=== PATIENT | male | born 1950 | race Caucasian/White ===

== ENCOUNTER 2019-04-19 08:55 | Day surgery (SDC) | payer MEDICARE, OTHER ==
[2019-04-15 09:09] LABS: HEMATOCRIT 38.8 % (42.0-54.0); HEMOGLOBIN 13.3 g/dL (13.5-17.5); MCH 32.8 pg (26.0-34.0); MCHC 34.3 g/dL (31.0-37.0); MCV 95.6 fL (80.0-100.0); MEAN PLATELET VOLUME 10.2 fL (7.4-10.4); RBC 4.06 10x6/uL (4.20-6.10); RDW 13.3 % (11.5-14.5); WBC 6.1 10x3/uL (4.8-10.8)
[~2019-04-19] VITALS: Ht 167.6 cm; Wt 85.3 kg
[~2019-04-19 08:55] MED LIST: CLARITIN 10 MG10 MG PO; FLOMAX0.4 MG PO; LIPITOR10 MG PO; LISINOPRIL10 MG PO; OMEPRAZOLE20 M1 PO
[2019-04-19 09:18] VITALS: BP 141/79; Ht 167.6 cm; Wt 85.3 kg
--- NOTE | 2019-04-19 13:44 | OP ---
PATIENT NAME: GRANT OVALLE MEDICAL RECORD: [id number] :48 LOCATION:[facility] ADMISSION DATE: SURGEON: ANNE BECKER MD DATE OF OPERATION: 04/19/2019 SURGEON: Anne Becker MD ANESTHESIA: General anesthesia by Tae Garcia. DIAGNOSIS: Obstructive benign prostatic hyperplasia with a PSA of 1.14. QUYEN shows a 40 gram prostate. IPSS is 7. Quality of life score is 3, on Flomax. PROCEDURE: UroLift times 4 in box configuration around bladder neck. FINDINGS: No urethral strictures, bladder neck obstruction. Trabeculated bladder without any bladder tumors. Single ureteral orifices bilaterally. ESTIMATED BLOOD LOSS: None. CLINICAL HISTORY: This is a 68-year-old male, who has obstructive BPH symptoms as well as microscopic hematuria. He has nocturia times 1. He has been on Flomax. He wishes to be off the Flomax due to its side effects. He is not allergic to any medications. He was given Ancef installation drafter to the OR. DESCRIPTION OF PROCEDURE: The patient was initially given IV sedation; however, when we placed his legs into the stirrups for a lithotomy position we realized that he had quite significant restless leg syndrome. He was then given an LMA and general anesthetic. This stabilized the legs. He was prepped and draped. The UroLift scope was introduced. No urethral strictures were seen. The main site of obstruction with the bladder neck. Four units were placed about 1.5 cm distal to the bladder neck. The first 2 were placed, one on each side at the anterolateral sulcus. The latter 2 were placed at the mid urethral level in an anterior and posterior direction at 1.5 cm distal to the bladder neck. All 4 units opened up the bladder neck widely. The bladder was left partly filled with irrigation fluid for a voiding trial. I will see the patient in followup in 1 months' time. TRANSINT:[id number] Voice Confirmation ID: [id number] DOCUMENT ID: [id number] ANNE BECKER MD at 1344 CC: [id number] DICTATION DATE: 04/19/19 1234 MONUMENT CARVER: 04/19/19 [id number] [place] [address]
--- NOTE | 2019-04-19 14:59 | NUR ---
1415 IV REMOVED AND INSTRUCTIONS GIVEN.
== END 2019-04-19 14:45 | disposition home or self-care (01) ==
LOC: D.OPS 08:55 → D.PAN 11:35 → D.OPS 11:45 → D.PAN 11:50 → D.OPS 12:15
PROVIDERS: Anesthesiology; ATTEND Urology
DX: N40.1 Benign prostatic hyperplasia with lower urinary tract symptoms (principal); N13.8 Other obstructive and reflux uropathy

== ENCOUNTER → 2019-04-26 12:32 | Outpatient (CLI) | payer MEDICARE, OTHER ==
[2019-04-19 09:18] VITALS: BMI 30.4
== END | disposition home or self-care (01) ==
LOC: D.LABREF 12:32
PROVIDERS: ATTEND Urology
DX: R31.9 Hematuria, unspecified (principal)

== ENCOUNTER → 2020-03-19 07:58 | Outpatient (CLI) | payer MEDICARE, OTHER ==
[2019-04-19 09:18] VITALS: BMI 30.4
== END | disposition home or self-care (01) ==
LOC: D.HCCARDIO 07:58
PROVIDERS: ATTEND Internal Medicine Cardiovascular Disease
DX: Z01.818 Encounter for other preprocedural examination (principal)

== ENCOUNTER 2020-04-02 11:16 | Day surgery (SDC) | payer MEDICARE, OTHER ==
[~2020-04-02] VITALS: Ht 167.6 cm; Wt 80.0 kg
--- NOTE | ~2020-04-02 | HEMODYNAMI ---
PATIENT:GRANT OVALLE MEDICAL RECORD: [id number] : 48 LOCATION:D.CAT ADMISSION DATE: 04/02/20 Generatedon:04/02/202014:21 Patient name: GRANT OVALLE Patient #: [id number] SSN: [id number] : 1950 Date of study: 04/02/2020 Page: Of Hemodynamic Procedure Report Patient Data Patient Demographics Procedure consent was obtained First Name: GRANT Gender: Male Last Name: YAMILE : 1950 [facility] Initial: ESTHER Age: 69 year(s) Patient #: [id number] Race: SSN: [id number] Additional ID: [id number] Contact details Address: [address] [place] [address] [facility] State: [place] City: [place] Zip code: [address] Past Medical History Allergies Allergen Reaction Date Comments Reported Other allergy 04/02/2020 NKA Admission Admission Data Admission Date: 04/02/2020 Admission Time: 11:16 Arrival Date: 04/02/2020 Arrival Time: 0:00 Admit Source: Other Insurance Payor: Medicare [facility] #: [id number] Height (in.): 66 BSA: 1.9 (m2) Height (cm.): 167.64 BMI: 28.73 (kg/m2) Weight (lbs.): 178 Weight (kg.): 80.74 Lab Results Lab Result Date: 04/02/2020 Lab Result Time: 0:00 Biochemistry Name Units Result Min Max BUN mg/dl 18 --(---*)-- 7 18 Creatinine mg/dl 1.2 --(---*)-- 0.6 1.3 Procedure Procedure Types Cath Procedure Diagnostic Procedure [facility] w/Coronaries FFR/IVUS FFR Initial Sedation Charges Moderate Sedation up to 45 minutes PCI Procedure Coronary Stent Coronary Stent Initial Hemochron ACT Test Procedure Description Procedure Date Procedure Date: 04/02/2020 Procedure Start Time: 13:34 Procedure End Time: 14:16 Procedure Staff Name Function J Luis Edwards MD Performing Physician Shannan Palomares RT Monitor Nora Metcalf RN Nurse Devorah Victor RT Scrub Danny Carrasco RN Nurse Procedure Data Cath Procedure Fluoroscopy Diagnostic fluoroscopy Total fluoroscopy Time: 8.1 time: 8.1 min min Diagnostic fluoroscopy Total fluoroscopy dose: dose: 1305 mGy 1305 mGy Contrast Material Contrast Material Type Amount (ml) Isovue 300 113 Entry Location Entry Primary Successful Side Size Upsize Upsize Entry Closure [place] ccessful Closure Location (Fr) 1 (Fr) 2 (Fr) Remarks Device Remarks Radial Right 6 Fr Mechanical artery Short Compression Estimated blood loss: 10 ml Diagnostic catheters Device Type Used For End Catheter Placement DIAGNOSTIC Harmans 110cm 5 Procedure Fr catheter ([id number]) Procedure Complications No complications Procedure Medications Medication Administration Route Dosage Oxygen etCO2 Nasal cannula 2 l/min Heparin Flush Bag added to field 2 bags (1000units/500ml NS) 0.9% NaCl I.V. 100 ml/hr Lidocaine 2% added to field 20 Fentanyl I.V. 50 mcg Versed I.V. 1 mg Fentanyl I.V. 50 mcg Versed I.V. 1 mg Radial Cocktail added to field 1 syringe (Verapamil 2mg/Nitro 400mcg/Heparin 1500units) Radial Cocktail I.A. 1 syringe (Verapamil 2mg/Nitro 400mcg/Heparin 1500units) Heparin Bolus I.V. 8000 units Nitroglycerin IC/IA I.C. 100 mcg Plavix P.O. 600 mg Hemodynamics Rest BSA: 1.9 (m2) O2 Consumption: Estimated: 221.92 (ml/min) O2 Consumption indexed: Estimated:116.8 (ml/min/m) Heart Rate: 73 (bpm) Pressure Samples Time Site Value (mmHg) Purpose Heart Use Rate(bpm) 13:37 LV 87/7,9 Snapshot 83 13:38 LV 130/1,11 Snapshot 84 13:39 AO 97/65(78) Pullback 85 Gradients Valve Time Site Site 2 Mean SEP/DFP Peak To Heart Use 1 (mmHg) (sec/min) Peak Rate (mmHg) (bpm) Aortic 13:39 LV AO 83 45 85 97/65(78) Calculations Valve P-P Mean Valve Index Valve Source Name Gradient Area Flow (cm2) Aortic 83 83 Snapshots Pre Cath Intra NCS Post Cath Vital Signs Time Heart Resp SPO2 etCO2 NIBP Rhythm Pain Sedation Rate (ipm) (%) (mmHg) (mmHg) Status Level (bpm) 13:01:57 70 17 29.9 123/81(97) NSR 0 (11) 10(A) , No pain 13:05:48 70 17 98 31.4 115/72(87) NSR 0 (11) 10(A) , No pain 13:10:11 72 16 99 29.9 128/65(93) NSR 0 (11) 10(A) , No pain 13:14:00 65 17 33.7 122/74(89) NSR 0 (11) 10(A) , No pain 13:17:52 66 17 99 32.9 123/69(89) NSR 0 (11) 10(A) , No pain 13:21:43 68 17 100 30.7 124/71(94) NSR 0 (11) 10(A) , No pain 13:25:32 68 16 33.7 116/74(89) NSR 0 (11) 10(A) , No pain 13:29:24 69 16 30.7 114/71(90) NSR 0 (11) 10(A) , No pain 13:33:36 67 10 0.7 125/75(95) NSR 0 (11) 9(A) , No pain 13:37:25 83 14 93 18.7 113/71(96) NSR 0 (11) 9(A) , No pain 13:41:49 78 7 95 4.4 113/60(93) NSR 0 (11) 9(A) , No pain 13:45:43 72 8 96 8.2 93/58(79) NSR 0 (11) 9(A) , No pain 13:50:11 65 9 96 15.7 119/48(74) NSR 0 (11) 9(A) , No pain 13:54:05 69 10 97 37.4 93/60(72) NSR 0 (11) 9(A) , No pain 13:58:00 73 11 97 36.7 94/53(64) NSR 0 (11) 9(A) , No pain 14:01:58 67 10 97 32.2 97/51(77) NSR 0 (11) 9(A) , No pain 14:05:49 67 10 98 38.1 100/58(82) NSR 0 (11) 9(A) , No pain 14:09:47 68 11 98 38.1 106/51(75) NSR 0 (11) 9(A) , No pain 14:13:38 65 11 98 37.4 105/61(81) NSR 0 (11) 10(A) , No pain Medications Time Medication Route Dose Verified Delivered Reason Not es Effectiveness by by 13:30:57 Oxygen etCO2 2 l/min J Luis Danny Per physician Nasal Jerry Carrasco RN cannula 13:31:21 Heparin Flush added 2 bags J Luis Danny used for Bag to Jerry Carrasco RN procedure (1000units/500ml field NS) 13:31:31 0.9% NaCl I.V. 100 J Luis Danny Per physician ml/hr Jerry Carrasco RN 13:31:39 Lidocaine 2% added 20ml J Luis Danny for local to vial Jerry Carrasco RN anesthetic field 13:31:48 Fentanyl I.V. 50 mcg J Luis Danny for sedation Jerry Carrasco RN 13:31:55 Versed I.V. 1 mg J Luis Danny for sedation Jerry Carrasco RN 13:34:38 Fentanyl I.V. 50 mcg J Luis Adnny for sedation Jerry Carrasco RN 13:34:41 Versed I.V. 1 mg J Luis Danny for sedation Jerry Carrasco RN 13:34:56 Radial Cocktail added 1 J Luis Danny used for (Verapamil to syringe Jerry Carrasco evaluation manager 2mg/Nitro field 400mcg/Heparin 1500units) 13:37:58 Radial Cocktail I.A. 1 J Luis J Luis for (Verapamil syringe Jerry Edwards MD vasodilation 2mg/Nitro 400mcg/Heparin 1500units) 13:56:44 Heparin Bolus I.V. 8000 Nora Nora for cristal ified w units Tea Metcalf, anticoagulation elisha,rn RN RN 13:57:24 Nitroglycerin I.C. 100 mcg Nora J Luis for IC/IA Jerry Metcalf MD vasodilation RN 14:11:45 Plavix P.O. 600 mg Nora Nora for Tea Metcalf, antiplatelet RN RN therapy Procedure Log Time Note 12:18: Informed consent obtained and on chart 12:21:48 Procedure Status Elective Heart Cath (OP). 12:21:50 Time tracking: Regular hours (M-F 7:00 - 5:00) 12:23:15 Arrival Date: 04/02/2020 12:00:00 AM 12:23:25 Patient Height : 66 inches 12:23:31 Patient Weight : 178 lbs 12:25:38 Stress Test: yes; abnormal INFERIOR 12:36:30 Devorah Victor RT(R) (CV) sent for patient. Start room use. 12:36:42 Plan of Care:Hemodynamics will remain stable., Cardiac rhythm will remain stable., Comfort level will be maintained., Respiratory function will remain adequate., Patient/ family verbilizes understanding of procedure., Procedure tolerated without complication., Recovers from procedure without complications.. 12:49:06 Patient received from Pre/Post Procedure Room to CCL 2 Alert and oriented. Tansferred to table in Supine position. 12:49:31 Warm blankets applied, and jones hugger turned on for patient comfort. 12:49:33 Correct patient and procedure confirmed by team. 12:49:36 ECG and BP/O2 sat monitors applied to patient. 12:49:55 H&P Date Dictated: 03/12/2020 Within 30 days and on chart., H&P Addendum completed by physician on day of procedure. (MUST COMPLETE FOR ALL OUTPATIENTS). 12:49:57 Pre-procedure instructions explained to patient. 12:50:01 Family in patients room. 12:50:04 Patient NPO since Midnight. 12:50:42 Patient allergic to Other allergyNKA 12:50:44 Is the patient allergic to Iodine/contrast media? No. 12:50:55 Is patient on blood thinner?No 12:50:57 Patient diabetic? No. 12:51:03 Snore? Yes 12:51:04 Sleep apnea? No 12:51:10 Dentures? No ? 12:51:16 Patient pain scale 0/10 ?. 12:51:23 IV patent on arrival in left forearm with 0.9% NaCl at KVO. 13:00:38 Vital chart was started 13:00:40 Baseline sample Acquired. 13:00:44 Rhythm: sinus rhythm 13:00:46 Full Disclosure recording started 13:00:58 Lab results completed and on chart. 13:08:52 Lab Result : Creatinine 1.2 mg/dl 13::52 Lab Result : BUN 18 mg/dl 13:09:02 Right Radial & Right Groin area was prepped with chlora-prep and draped in sterile fashion 13:: Alarms reviewed by RRui N. 13:: Sharps counted by scrub and verified by R.N. 13:09:05 Physician arrived 13::06 Insurance Payor : Medicare 13:: Admit Source: Other 13::36 --------ALL STOP TIME OUT------ ::36 Final Timeout: patient, procedure, and site verified with staff and physician. All members of the team are in agreement. 13:28:39 Right Radial & Right Groin site verified by team. 13:28:44 Fire Safety Assessment: A--An alcohol-based skin anteseptic being used preoperatively., C--Open oxygen or nitrous oxide is being used., D--An ESU, laser, or fiber-optic light is being used. 13:28:58 Physical assessment completed. ASA score P 2 - A patient with mild systemic disease as per J Luis Edwards MD. 13:29:01 2) 60-89 Mildly reduced kidney function, and other findings (as for stage 1) point to kidney disease. 13:29:04 Maximum allowable contrast dose (3.7 X eGFR X 0.75)177 ml. 13:29:10 Sedation plan: IV Moderate Sedation Medication:Versed, Fentanyl 13:29:15 Use device set Radial Dx or PCI 13:29:18 ACIST Syringe (51355) opened to sterile field. 13:29:18 Medline Cath Pack ([id number]) opened to sterile field. 13:29:19 Bag Decanter () opened to sterile field. 13:29:19 ACIST Hand Control (71045) opened to sterile field. 13:29:20 ACIST Manifold (32439) opened to sterile field. 13:29:22 MBrace Wrist Support ([id number]) opened to sterile field. 13:29:23 NEEDLE Cook 21G 4cm Radial (H17537) opened to sterile field. 13:29:24 EMERALD Guide Wire (319-024) opened to sterile field. 13:29:25 SHEATH 6FR RAIN (4851699) opened to sterile field. 13:30:57 Oxygen 2 l/min etCO2 Nasal cannula was administered by Danny Carrasco RN; Per physician; Verbal order read back and verified. 13:31:21 Heparin Flush Bag (1000units/500ml NS) 2 bags added to field was administered by Danny Carrasco RN; used for procedure; Verbal order read back and verified. 13:31:31 0.9% NaCl 100 ml/hr I.V. was administered by Danny Carrasco RN; Per physician; Verbal order read back and verified. 13:31:39 Lidocaine 2% 20ml vial added to field was administered by Danny Carrasco RN; for local anesthetic; Verbal order read back and verified. 13:31:48 Fentanyl 50 mcg I.V. was administered by Danny Carrasco RN; for sedation; Verbal order read back and verified. 13:31:55 Versed 1 mg I.V. was administered by Danny Carrasco RN; for sedation; Verbal order read back and verified. 13:33:43 Procedure started. 13:34:23 Local anesthetic to right radial artery with Lidocaine 2% by J Luis Edwards MD.INITIAL ACCESS ONLY 13:34:38 Fentanyl 50 mcg I.V. was administered by Danny Carrasco RN; for sedation; Verbal order read back and verified. 13:34:41 Versed 1 mg I.V. was administered by Danny Carrasco RN; for sedation; Verbal order read back and verified. 13:34:56 Radial Cocktail (Verapamil 2mg/Nitro 400mcg/Heparin 1500units) 1 syringe added to field was administered by Danny Carrasco RN; used for procedure; Verbal order read back and verified. 13:35:44 A 6 Fr Short sheath was inserted into the Right Radial artery 13:36:53 A DIAGNOSTIC Harmans 110cm 5 Fr catheter ([id number]) was advanced over the wire and used for Procedure. 13:37:32 LV angiography performed. 13:37:58 Radial Cocktail (Verapamil 2mg/Nitro 400mcg/Heparin 1500units) 1 syringe I.A. was administered by J Luis Edwards MD; for vasodilation; Verbal order read back and verified. 13:39:13 EF : 50 % 13:39:51 LCA angiography performed. 13:41:58 RCA angiography performed. 13:44:47 Catheter removed. 13:45:52 GUIDE 6FR AR 1.0 catheter (KV3XC50) opened to sterile field. 13:45:54 Hines [place] Eagley[place] IVUS Catheter (00855N) opened to sterile field. 13:45:56 TUBING High Pressure Extension Tubing (Jerry) ([id number]) opened to sterile field. 13:45:57 INFLATOR Merit BasixCompak (YY5911) opened to sterile field. 13:46:06 Proceeding to intervention. 13:46:14 6 Fr AR1 guide catheter was inserted over the wire 13:47:48 FFR/IFR wire advanced. 13:51:03 Wire advanced across lesion. 13:51:17 mRCA lesion measured at .95 with IFR 13:51:27 Wire removed. 13:51:45 Guide catheter removed. 13:51:56 GUIDE 5FR EBU 3.5 catheter (PB5DCV93) opened to sterile field. 13:51:57 BMW 300cm [place] 2 J wire ([id number]) opened to sterile field. 13:52:11 6 Fr EBU3.5 guide catheter was inserted over the wire 13:56:44 Heparin Bolus 8000 units I.V. was administered by Nora Metcalf RN; for anticoagulation; verified w ligia tello Verbal order read back and verified. 13:57:24 Nitroglycerin IC/IA 100 mcg I.C. was administered by J Luis Edwards MD; for vasodilation; Verbal order read back and verified. 13:58:27 BMW wire advanced. 14:04:02 Place stent Inflation Number: 1 A MEEK RX 2.5 x 26 stent ([id number]) was prepped and advanced across the Mid LAD 80. The stent was deployed at 12 OSMAR for 0:11 (min:sec) . 14:05:42 Stent balloon re-inserted over wire. 14:09:12 Place stent Inflation Number: 1 A MEEK RX 3.0 x 18 stent ([id number]) was prepped and advanced across the Prox LAD 80. The stent was deployed at 11 OSMAR for 0:24 (min:sec) 0. 14:09:56 Stent catheter was removed intact over wire. 14:09:57 Wire removed. 14:09:58 Guide catheter removed. 14:10:02 TR BAND Standard ([id number]) opened to sterile field. 14:10:49 Sheath removed intact; hemostasis achieved with Mechanical Compression to the Right Radial artery. 14:11:00 Procedure ended.(Physican Out) 14:11:15 Fluoroscopy time 08.10 minutes. 14:11:19 Fluoroscopy dose: 1305 mGy 14:11: Flurop Dose total: 1305 14:11:26 Dose Area Product 46375 mGy/cm. 14:11:36 Contrast amount:Isovue 300 113ml. 14:11:38 Maximum allowable dose exceeded? No. 14:11:40 Sharps counted by scrub and verified by R.N. 14:11:43 [place] band inflated with 10cc of air. 14:11:44 Insertion/operative site no bleeding no hematoma. 14:11:45 Plavix 600 mg P.O. was administered by Nora Metcalf RN; for antiplatelet therapy; Verbal order read back and verified. 14:11:50 Post Procedure Pulses reassessed and unchanged 14:12:23 Post-procedure physical assessment completed. ASA score P 3 - A patient with severe systemic disease as per J Luis Edwards MD. 14:12:28 Post procedure rhythm: sinus rhythm 14:12:31 Estimated blood loss: 10 ml 14:12:33 Post procedure instruction explained to patient.Patient verbalizes understanding. 14:12:44 Patient needs reinforcement of post procedure teaching. 14:13:34 Procedure type changed to Cath procedure, Diagnostic procedure, LHC, C w/Coronaries, FFR/IVUS, FFR Initial, Sedation Charges, Moderate Sedation up to 45 minutes, PCI procedure, Coronary Stent, Coronary Stent Initial, Hemochron ACT Test 14:14:54 Procedure and supply charges have been captured, reviewed, submitted and are correct. 14:15:31 Procedure Complication : No complications 14:15:38 Vital chart was stopped 14:15:41 [facility] Findings: MVD- PCI performed (see procedure note) 14:15:48 See physician's report for complete and final results. 14:15:51 Report given to Pre/Post Procedure Room. 14:16:00 Patient transfered to Pre/Post Procedure Room with Stretcher. 14:16:05 Procedure ended. 14:16:05 Full Disclosure recording stopped 14:16:12 End room use (Document Last) 14:16:23 End room use (Document Last) 14:16:58 End room use (Document Last) 14:21:12 ACT drawn and resulted at OOR seconds. (normal therapeutic range 180-240 seconds). Intervention Summary Intervention Notes Time ActionType Lesion and Equipment Used Action# Pressure Duration Attributes 14:04:02 Place stent Mid LAD MEEK RX 2.5 x 1 12 00:11 26 stent ([id number]) 14:09:12 Place stent Prox LAD MEEK RX 3.0 x 1 11 00:24 18 stent ([id number]) Device Usage Item Name Manufacture Quantity Catalog Hospital Part Current [facility] Lot# / Number Charge Number Stock Stock Serial# Code ACIST Syringe Acist 1 75809 819561 981483 668046 20 (21121) Medical Systems Inc Medline Cath Medline 1 [id number] 281135 29012 186872 5 Pack ([id number]) Bag Decanter Microtek 1 2001S 077265 78569 955734 5 (2001S) Medical Inc. ACIST Hand Acist 1 95138 487157 691568 713838 5 Control Medical (07164) Systems Inc ACIST Manifold Acist 1 13431 222637 045062 705031 5 (64724) Medical Systems Inc MBrace Wrist Advanced 1 140-0250-00 907131 56491 365330 5 Support Vascular ([id number]) Dynamics NEEDLE Vontoo Medical 1 F60169 400348 751775 381977 5 21G 4cm Radial (A52666) EMERALD Guide Cardinal 1 502-455 837797 423620 341246 5 Wire (502-455) Health SHEATH 6FR Cardinal 1 2423284 871294 4945537 225466 5 RAIN (8650914) Health DIAGNOSTIC Terumo 1 40-4933 615507 949841 508335 5 Harmans 110cm 5 Fr catheter (640449) GUIDE 6FR AR Medtronic 1 [id number] 613163 83520 879474 1 1.0 catheter (LJ2SF21) Hines Hines 1 82103D 475272 776368 110592 8 [place]ag[place] IVUS Catheter (71139E) TUBING High Merit 1 [id number] 048297 44859 842905 10 Pressure Medical Extension Tubing (Edwards) (HP5045Y) INFLATOR Merit Merit 1 SH2915 054566 584896 550625 15 BasixCommsk Medical (PH2823) GUIDE 5FR EBU Medtronic 1 [id number] 835467 966596 087628 1 3.5 catheter (JH4KUZ22) BMW 300cm Amor 1 [id number] 278949 635123 202604 5 [place] 2 J Vascular wire (1647695Z) MEEK RX 2.5 x Medtronic 1 [id number] 607102 9932842 953979 5 [id number] 26 stent ([id number]) MEEK RX 3.0 x Medtronic 1 [id number] 611923 8805290 660505 5 [id number] 18 stent ([id number]) TR BAND Terumo 1 [id number] 578960 276799 727571 40 Standard ([id number]) Signature Audit Sears Stage Time Signature Unsigned Intra-Procedure 04/02/2020 Shannan Palomares 2:16:23 PM RT(R) Intra-Procedure 04/02/2020 Nora Metcalf, 2:16:58 PM RN Intra-Procedure 04/02/2020 JL uis Edwards MD 2:21:49 PM Signatures Performing Physician : Signature : J Luis Edwards MD Date : Time : Monitor : Shannan Palomares Signature : RT Date : Time : Nurse : Nora Metcalf, Signature : RN Date : Time : Nurse : Danny Carrasco RN Signature : Date : Time : [address] [place] [address]
[2020-04-02 12:00] VITALS: BP 137/71; Ht 167.6 cm; Wt 80.0 kg
[2020-04-02 12:13] LABS: BASOPHILS 0.5 % (0-2); EOSINOPHILS 2.3 % (0-7); HEMATOCRIT 40.2 % (42.0-54.0); HEMOGLOBIN 13.5 g/dL (13.5-17.5); IMMATURE GRANULOCYTES 0.2 % (0-5); LYMPHOCYTES 28.6 % (15-50); MCH 31.3 pg (26.0-34.0); MCHC 33.6 g/dL (31.0-37.0); MCV 93.3 fL (80.0-100.0); MEAN PLATELET VOLUME 10.2 fL (7.4-10.4); NEUTROPHILS 60.4 % (40-80); PLATELET COUNT 149 10x3/uL (130-400); RBC 4.31 10x6/uL (4.20-6.10); RDW 13.1 % (11.5-14.5); WBC 6.5 10x3/uL (4.8-10.8)
[2020-04-02 12:45] LABS: ANION GAP 14.1 mmol/L (8-16); CALCIUM 8.8 mg/dL (8.5-10.1); CARBON DIOXIDE 24.1 mmol/L (21.0-32.0); CHOL - HDL RATIO 3.2 ratio (2.3-4.9); CREATININE - SERUM 1.2 mg/dL (0.6-1.3); LDL-HDL RATIO 1.8 ratio (1.5-3.5); POTASSIUM - SERUM 4.2 mmol/L (3.5-5.1)
--- NOTE | 2020-04-02 13:55 | NUR ---
2cc OF AIR REMOVED FROM Z BAND. NO BLEEDING/HEMATOMA NOTED. TOLERATED WELL. VSS. CALL LIGHT WITHIN REACH.
--- NOTE | 2020-04-02 14:30 | NUR ---
PT ARRIVED BY STRETCHER. PLACED ON MONITORS. ASSESSMENT COMPLETED. VSS AT THIS TIME. CALL LIGHT WITHIN REACH. FAMILY AT BEDSIDE AT THIS TIME.
--- NOTE | 2020-04-02 14:45 | NUR ---
RIGHT WRIST Z BAND IN PLACE. NO BLEEDING/HEMATOMA NOTED. CALL LIGHT WITHIN REACH. FAMILY AT BEDSIDE. VSS AT THIS TIME.
[2020-04-02] MEDS ORDERED: BAYER CHEWABLE81 MG PO (14:55)
[2020-04-02] MEDS ORDERED: PLAVIX75 MG PO (14:55)
--- NOTE | 2020-04-02 15:15 | NUR ---
RIGHT WRIST Z BAND IN PLACE. NO BLEEDING/HEMATOMA NOTED. CALL LIGHT WITHIN REACH. VSS AT THIS TIME.
--- NOTE | 2020-04-02 15:45 | NUR ---
RIGHT WRIST Z BAND IN PLACE. NO BLEEDING/HEMATOMA NOTED. CALL LIGHT WITHIN REACH. VSS AT THIS TIME. FAMILY AT BEDSIDE. DENIES NAUSEA/PAIN AT THIS TIME.
--- NOTE | 2020-04-02 16:15 | NUR ---
RIGHT WRIST Z BAND IN PLACE. NO BLEEDING/HEMATOMA NOTED. CALL LIGHT WITHIN REACH. VSS AT THIS TIME. PT SET UP WITH SANDWICH TRAY AND DRINK. DENIES NAUSEA/PAIN.
--- NOTE | 2020-04-02 16:45 | NUR ---
1cc OF AIR REMOVED FROM Z BAND. NO BLEEDING/HEMATOMA NOTED. CALL LIGHT WITHIN REACH. VSS AT THIS TIME. FAMILY AT BEDSIDE.
--- NOTE | 2020-04-02 16:55 | NUR ---
2cc OF AIR REMOVED FROM Z BAND. NO BLEEDING/HEMATOMA NOTED. CALL LIGHT WITHIN REACH. VSS AT THIS TIME. FAMILY AT BEDSIDE.
--- NOTE | 2020-04-02 17:05 | NUR ---
3cc OF AIR REMOVED FROM Z BAND. NO BLEEDING/HEMATOMA NOTED. CALL LIGHT WITHIN REACH. VSS AT THIS TIME. FAMILY AT BEDSIDE.
--- NOTE | 2020-04-02 17:20 | NUR ---
REMAINDER OF AIR REMOVED FROM Z BAND (APPROX 5cc). PT TOLERATED WELL. NO BLEEDING/HEMATOMA NOTED. VSS. CALL LIGHT WITHIN REACH. FAMILY AT BEDSIDE.
--- NOTE | 2020-04-02 17:40 | NUR ---
PIV D/C'D WITH CATH TIP INTACT. TOLERATED WELL.
--- NOTE | 2020-04-02 17:42 | NUR ---
Z BAND REMOVED AND DRESSING APPLIED. NO BLEEDING/HEMATOMA NOTED. RIGHT WRIST BRACE IN PLACE. DISCUSSED DISCHARGE INSTRUCTIONS WITH PT AND PT'S . THEY VOICED UNDERSTANDING. PT INSTRUCTED TO GET UP AND DRESSED AT THIS TIME. NO ASSISTANCE NEEDED. CALL LIGHT WITHIN REACH.
--- NOTE | 2020-04-02 17:50 | NUR ---
RIGHT WRIST DRESSING C/D/I. NO S/S OF HEMATOMA NOTED. PT AMBULATED TO RESTROOM. VOIDED WITHOUT DIFFICULTY. STEADY GAIT NOTED. PT TAKEN OUT TO VEHICLE BY WHEELCHAIR. NO S/S OF DISTRESS NOTED. ALL BELONGINGS AND PAPERWORK IN HAND.
== END 2020-04-02 17:50 | disposition home or self-care (01) ==
LOC: D.CATH 11:16
PROVIDERS: ATTEND Internal Medicine Cardiovascular Disease
DX: I20.9 Angina pectoris, unspecified (principal); R94.39 Abnormal result of other cardiovascular function study; I10 Essential (primary) hypertension; E78.5 Hyperlipidemia, unspecified
CPT/HCPCS: 93458; 93571; C9600